=== PATIENT | female | born 1965 | race Caucasian/White ===

== ENCOUNTER → 2024-03-07 09:24 | Outpatient (REF) | payer OTHER, SELFPAY | LOC: WDC 09:24 | PROVIDERS: ATTENDING PHYSICIAN Family Medicine | DX: N64.4 Mastodynia (principal) | CPT/HCPCS: 76642; 77062; 77066 ==

== ENCOUNTER 2024-11-23 13:28 | Emergency (ER) | payer OTHER, SELFPAY ==
[2024-11-23 13:30] VITALS: BP 186/93
[2024-11-23 13:49] LABS: Urine Albumin 3+ (Neg - Trace); Urine Bilirubin Negative (Negative); Urine Character Cloudy (Clear); Urine Color Red; Urine Glucose Negative (Negative); Urine Ketone Negative (Negative); Urine Leukocyte 3+ (Negative); Urine Nitrite Negative (Negative); Urine Occult Blood 4+ (Negative); Urine Urobilinogen Negative (Neg - 1+)
[2024-11-23 14:13] LABS: Urine Red Blood Cell >100 /HPF (0-2); Urine Squamous Cell 0-2 /LPF (Few)
[2024-11-23 14:14] LABS: Urine White Cell >100 /HPF (0-5)
--- NOTE | 2024-11-23 14:35 | ED.GENMED ---
History of Present Illness
General
Chief Complaint: Urinary Symptoms
Source: patient
Exam Limitations: none
Time Seen by Provider: 11/23/24 14:35
Nursing documentation reviewed up to this point in time: agreed with
History of Present Illness
History of Present Illness:
59 y/o F with h/o frequent UTIs but has nothad one in 8 years
here with dysuria this morning, urgency and then most recently gross hematuria
she has no fever, chills, back pain, nausea, vomtiing
she feels she can get her urine out
she is not in significant pain but knows this is a bladder infection from previous infections
no vaginal symptoms
Past History
Past History
ED Past Medical History: None
ED Past Surgical History: Gynecological
Social History
Tobacco: Non-smoker
Alcohol: None
Drug: None
Personal: Single
Review of Systems
Review of Systems
Allergies reviewed?: Yes
All Other Systems: Not applicable
Phy Exam
Physical Exam
Physical Exam:
GENERAL: Alert , in no apparent distress
ENT: o/p clr, mmm.
CARDIAC: Regular rate and rhythm .
LUNGS: Clear breath sounds bilaterally, no acute respiratory distress, no wheezes/rales/rhonchi
ABDOMEN: Soft, without focal tenderness, no r/g, no cvat, normal bowel sounds
no back tenderness
NEUROLOGICAL: Alert and oriented, no focal neuro deficits
SKIN: Warm and dry, skin intact.
PSYCH: Normal and appropriate interaction.
Course
Orders/Labs/Results
Orders:
Orders
11/23/24 13:38
Urinalysis Reflex To Culture Urgent
Date Specimen was Collected: 11/23/24
Time Specimen was Collected: 13:33
Urine Microscopic Reflex Cult Urgent
Urine Culture Urgent
FELISA Source: U
Specimen Description:
Date Specimen was Collected: 11/23/24
Time Specimen was Collected: 13:33
11/23/24 15:23
Cefdinir [Omnicef] 300 mg PO NOW STA
Abnormal Lab Results
11/23/24
13:38
Ur Occult Blood Reflex 4+ A
(Negative)
Leukocyte Esterase Rfl 3+ A
(Negative)
Urine RBC >100 A /HPF
(0-2)
Urine WBC (Reflex) >100 A /HPF
(0-5)
Urine Albumin (Reflex) 3+ A
(Neg - Trace)
Vital Signs
Initial and Last Documented VS:
Initial Vital Signs
Temp Pulse Resp BP Pulse Ox
36.8 C 90 18 186/93 99
11/23/24 13:30 11/23/24 13:30 11/23/24 13:30 11/23/24 13:30 11/23/24 13:30
Last Documented Vital Signs
Temp Pulse Resp BP Pulse Ox
36.8 C 90 18 186/93 99
11/23/24 13:30 11/23/24 13:30 11/23/24 13:30 11/23/24 13:30 11/23/24 13:30
MDM/Problems Addressed
Differential Diagnosis Includes:
uti
MDM/Problems Addressed:
59 y/o F
h/o utis in the past
here with dysuria, mild frequency and hematuria today
no systemic symptoms
no back pain
well appaering
unremarkable exam
urine appears infected
cannot recall what abx helped, she says augmentin didn't
will do cefdinir
culture pending
*Critical Care Note
Total Time (30-74mins, 75-104mins- exclusive of procedures): Not Applicable
ED Attending Note
-
Portions of this chart may have been created with voice recognition software.� Occasional wrong word or��sound alike� substitutions may have occurred due to the inherent limitations of voice recognition software.
Discharge Plan
Departure
Patient Disposition: Home (Routine Discharge)
Date of Disposition: 11/23/24
Time of Disposition: 15:22
Patient with high blood pressure during this ER visit?: No
Condition: Fair
Covid-19: Not Applicable
Discharge Problem:
UTI (urinary tract infection)
Instructions: Urinary Tract Infection, Adult (DC)
Prescriptions:
New
cefdinir 300 mg capsule
300 mg PO BID Qty: 14 0RF
Referrals:
Sarthak James DO [Family Provider] -
Activity Restrictions/Additional Instructions:
YOU HAVE A URINE INFECTION
CEFDINIR TWICE A DAY FOR 7 DAYS
WE JOANA CALL YOU IF WE NEED TO SWITCH YOUR ANTIBIOTIC
RETURN FOR ANY CONCERNS: INABILITY TO PEE, FEVER, VOMITING, BACK PAIN
Interventions
Interventions:
*Risk Screen - Suicide Last Done: 11/23/24 13:30
*General Assessment Last Done: 11/23/24 13:30
*Neglect/Abuse Screening Last Done: 11/23/24 13:30
*ED- Fall Risk Assessment Last Done: 11/23/24 14:50
*ED COVID-19 Vaccine History Last Done: 11/23/24 14:50
*Nursing Disposition Last Done: 11/23/24 15:43
ED-Female Genitourinary Assessment Last Done: 11/23/24 14:50
Discharge Date and Time
Discharge Date/Time: 11/23/24 15:44
Print Language: LATVIAN
[2024-11-23 14:50] VITALS: BMI 23.7
[2024-11-23] MEDS: OMNICEF 300 MG PO (15:39)
== END 2024-11-23 15:44 | disposition home or self-care (01) ==
LOC: EMR 13:28
PROVIDERS: Registered Nurse; EMERGENCY PHYSICIAN Emergency Medicine; FAMILY PHYSICIAN Family Medicine
DX: N39.0 Urinary tract infection, site not specified (principal); Z87.440 Personal history of urinary (tract) infections
CPT/HCPCS: 99282; 81003; 81015; 87077; 87086; 87186

== ENCOUNTER → 2025-03-31 16:13 | Outpatient (REF) | payer OTHER, SELFPAY | LOC: WDC 16:13 | PROVIDERS: ATTENDING PHYSICIAN Family Medicine | DX: Z12.31 Encounter for screening mammogram for malignant neoplasm of breast (principal) | CPT/HCPCS: 77063; 77067 ==

== ENCOUNTER → 2025-04-04 09:34 | Outpatient (REF) | payer OTHER, SELFPAY | LOC: WDC 09:34 | PROVIDERS: ATTENDING PHYSICIAN Family Medicine | DX: R92.8 Other abnormal and inconclusive findings on diagnostic imaging of breast (principal) | CPT/HCPCS: 76642 ==